=== PATIENT | male | born 1995 | race Caucasian/White ===

== ENCOUNTER 2023-06-23 14:54 | Outpatient (AMB) | payer OTHER, SELFPAY ==
--- NOTE | 2023-06-23 15:42 | MHC.OFFWIV ---
Intake Vital Signs 06/23/23 15:43 Height 5 ft 6.5 in Weight 180 lb 2 oz BMI 28.6 BP 128/66 Blood Pressure Location Rt brachial Position Sitting Pulse 86 Pulse Source Pulse Oximeter Temp 98.6 F Temp Source Oral Pulse Oximetry (%) 100 Oxygen Delivery Method Room Air Intake Visit Reasons: EST/sore throat(LOBBY) Intake Note: Pt presents to the office today for c/o sore throat that started this morning as well as a headache. Patient Tobacco Use Status: Never used Tobacco Allergies ibuprofen [From MOTRIN] Allergy (Intermediate, Unverified 06/23/23 16:04) ASTHMA, anaphylaxis dogs, cats Allergy (Unknown, Uncoded 06/23/23 16:04) Wheezing Motrin Allergy (Unknown, Uncoded 06/23/23 16:04) anaphylaxis Medication List - Last Reconciled 06/23/23 by Rojas Mercedes MD No Known Home Meds HPI EST/sore throat(LOBBY) HPI Details 28-year-old male presents to the office for a sick visit. Patient is reporting symptoms of sore throat and cough for the past day. No fevers or chills. No nausea or vomiting. No family members sick. [facility] Social History Household Members: Family Housing: House Alcohol intake: current Alcohol intake frequency: holidays/special occasions only Patient Tobacco Use Status: Never used Tobacco Use of substances other than those prescribed or required for medical reasons: No Physical Exam Vital Signs: Last Vital Signs Temp 98.6 F 06/23/23 15:43 Pulse 86 06/23/23 15:43 BP 128/66 06/23/23 15:43 Pulse Ox 100 06/23/23 15:43 Oxygen Delivery Method Room Air 06/23/23 15:43 BMI result Body Mass Index 28.6 Const General: cooperative and healthy appearing Nutritional Appearance: well nourished Orientation/consciousness: patient oriented x3 Limitations: no limitations HEENT Head: Yes normal to inspection Eyes General: appearance normal, both eyes and all related structures Neck Neck: Yes normal visual inspection Chest Chest palpation & inspection: normal palpation of entire chest wall Resp Effort & Inspection: normal respiratory effort Neuro General: patient oriented x3 Results AMB Rapid Strep AMB Rapid Strep Negative Last Edit by Ángela Orozco MA on 06/23/23 16:05 Assessment & Plan Assessment & Plan (1) Upper respiratory tract infection: Code(s): J06.9 - Acute upper respiratory infection, unspecified Plan: no antibiotics needed. Self-limiting illness. Increase fluid intake. Orders: Orders AMB Rapid Strep Screen Today Z13.9 - Encounter for screening, unspecified Coding Level of Care Code Est Pt Level 3 (58824) Diagnoses Upper respiratory tract infection J06.9
[2023-06-23 15:43] VITALS: BP 128/66; PULSE 86; TEMP 37; O2SAT 100; BMI 28.6
== END 2023-06-23 16:05 | disposition home or self-care (01) ==
PROVIDERS: Visit Provider Internal Medicine
DX: J06.9 Acute upper respiratory infection, unspecified (principal); Z13.9 Encounter for screening, unspecified
CPT/HCPCS: 87880; 99213